=== PATIENT | female | born 1985 | race Hispanic/Latino ===

== ENCOUNTER 2017-06-25 12:10 | Inpatient (IN) | payer MEDICAID ==
[2017-06-25 12:27] VITALS: O2SAT 98
--- NOTE | 2017-06-25 13:01 | ED PDOC ---
HPI: Psych/Substance Abuse Time Seen by Provider: 06/25/17 12:27 Chief Complaint (Nursing): Psychiatric Evaluation Chief Complaint (Provider): Psychiatric Evaluation History Per: Patient History/Exam Limitations: no limitations Onset/Duration Of Symptoms: Days (x 2-3 weeks) Current Symptoms Are (Timing): Still Present Suicide/Self Injury Attempted (Context): Cut Wrists (left) Associated Symptoms: Depression, Suicidal Thoughts Additional Complaint(s): Tiara Bahena is a 31-year-old female with a past medical history of bipolar disorder who ambulated to the Emergency Department for psychiatric evaluation. Patient states she has felt depressed and has been having suicidal ideations for the past 2-3 weeks. She reports being off medications for 5 years. Two days ago, she cut her left wrist but then realized what she was doing and applied pressure to the wound to stop the bleeding. Patient came here voluntarily today requesting admission. She denies any alcohol or drug use. Tetanus is not up to date. PMD: None Past Medical History Reviewed: Historical Data, Nursing Documentation, Vital Signs Vital Signs: Last Vital Signs Temp 97.6 F 06/25/17 12:21 Pulse 84 06/25/17 12:21 Resp 16 06/25/17 12:21 BP 120/72 06/25/17 12:21 Pulse Ox 98 06/25/17 12:21 - Medical History PMH: Bipolar Disorder - Family History Family History: States: Unknown Family Hx - Social History Current smoker - smoking cessation education provided: No Alcohol: None Drugs: Denies - Immunization History Hx Tetanus Toxoid Vaccination: No (Last booster > 10 years ago) - Home Medications Home Medications: Ambulatory Orders Medication Instructions Recorded No Known Home Med 06/25/17 - Allergies Allergies/Adverse Reactions: Allergies Allergy/AdvReac Type Severity Reaction Status Date / Time No Known Allergies Allergy Verified 06/25/17 12:21 Review of Systems ROS Statement: Except As Marked, All Systems Reviewed And Found Negative Psych: Positive for: Depression, Suicidal ideation. Negative for: Other ( hallucinations, homicidal ideation) Physical Exam - Reviewed Nursing Documentation Reviewed: Yes Vital Signs Reviewed: Yes - Physical Exam Appears: Positive for: Non-toxic, No Acute Distress Head Exam: Positive for: ATRAUMATIC, NORMAL INSPECTION, NORMOCEPHALIC Skin: Positive for: Normal Color. Negative for: Rash Eye Exam: Positive for: Normal appearance Neck: Positive for: Normal, Painless ROM Cardiovascular/Chest: Positive for: Regular Rate, Rhythm. Negative for: Murmur Respiratory: Positive for: Normal Breath Sounds. Negative for: Accessory Muscle Use, Respiratory Distress Pulses-Radial (L): 2+ Pulses-Radial (R): 2+ Gastrointestinal/Abdominal: Positive for: Normal Exam, Soft. Negative for: Tenderness Back: Positive for: Normal Inspection. Negative for: Vertebral Tenderness Extremity: Positive for: Normal ROM. Negative for: Pedal Edema, Deformity Neurologic/Psych: Positive for: Alert, Oriented (x3) - Laboratory Results Result Diagrams: 06/25/17 13:31 06/25/17 13:31 Urine POC: Negative - ECG O2 Sat by Pulse Oximetry: 98 (RA) Pulse Ox Interpretation: Normal - Other Rad CXR X-Ray: Interpreted by Me, Viewed By Me X-Ray Interpretation: no acute disease Medical Decision Making Medical Decision Making: Initial Impression: 31-year-old female with suicidal ideation Time: 12:58 Initial Plan: --ED Urine --Urinalysis --Urine drug screen --Alcohol serum --CMP --CBC with Differential --Chest X-Ray --Tetanus vaccine 0.5 ml IM --Pending crisis evaluation As per crisis counselor and psychiatrist excellence consultant, Dr. Roman, patient does meet criteria for admission. Patient signed herself in and agrees with admission. Patient is medically stable for psychiatric admission. Scribe Attestation: Documented by Colette Mccloud, acting as a scribe for Dee Dee Walter PA-C Provider Scribe Attestation: All medical record entries made by the Scribe were at my direction and personally dictated by me. I have reviewed the chart and agree that the record accurately reflects my personal performance of the history, physical exam, medical decision making, and the department course for this patient. I have also personally directed, reviewed, and agree with the discharge instructions and disposition. Disposition - Clinical Impression Clinical Impression: Bipolar disorder - Patient ED Disposition Is Patient to be Admitted: Yes - Disposition Disposition Time: 14:57 Condition: FAIR Results - Lab Results Lab Results: 06/25/17 06/25/17 13:31 13:31 WBC 9.1 RBC 4.52 Hgb 12.7 Hct 38.3 MCV 84.9 MCH 28.1 MCHC 33.1 RDW 13.7 Plt Count 353 MPV 8.1 Neut % (Auto) 55.6 Lymph % (Auto) 29.5 Sheridan % (Auto) 9.8 Eos % (Auto) 4.1 H Baso % (Auto) 1.0 Neut # 5.1 Lymph # 2.7 Sheridan # 0.9 H Eos # 0.4 Baso # 0.1 Sodium 140 Potassium 4.2 Chloride 104 Carbon Dioxide 25 Anion Gap 15 BUN 13 Creatinine 0.7 Est GFR ( Amer) > 60 Est GFR (Non-Af Amer) > 60 Random Glucose 96 Calcium 9.5 Total Bilirubin 0.5 AST 27 ALT 33 Alkaline Phosphatase 60 Total Protein 7.4 Albumin 4.4 Globulin 2.9 Albumin/Globulin Ratio 1.5 Serum HCG, Qual Negative Alcohol, Quantitative < 10
[2017-06-25 13:42] LABS: BASO # 0.1 K/uL (0.0-0.2); EOS # 0.4 K/uL (0.0-0.7); EOS % 4.1 % (0.0-4.0); HEMOGLOBIN 12.7 g/dL (12.0-16.0); LYMPH # 2.7 K/uL (1.0-4.3); LYMPH % 29.5 % (20.0-40.0); MEAN CELL VOLUME 84.9 fl (81.0-99.0); MEAN CORPUSCULAR HEMOGLOBIN 28.1 pg (27.0-31.0); MEAN CORPUSCULAR HGB CONC 33.1 g/dL (33.0-37.0); MEAN PLATELET VOLUME 8.1 fl (7.2-11.7); MONO # 0.9 K/uL (0.0-0.8); MONO % 9.8 % (0.0-10.0); NEUT # 5.1 K/uL (1.8-7.0); NEUT % 55.6 % (50.0-75.0); NRBC % 0.1 % (0.0-0.0); RBC 4.52 Mil/uL (3.80-5.20); RED CELL DISTRIBUTION WIDTH 13.7 % (11.5-14.5); WHITE BLOOD COUNT 9.1 K/uL (4.8-10.8)
[2017-06-25 14:03] LABS: ALB/GLOB RATIO 1.5 (1.0-2.1); ALBUMIN 4.4 g/dL (3.5-5.0); ALT/SGPT 33 U/L (9-52); AST/SGOT 27 U/L (14-36); BLOOD UREA NITROGEN 13 mg/dl (7-17); CALCIUM 9.5 mg/dL (8.4-10.2); GFR AFRICAN-AMERICAN > 60; GFR NON-AFRICAN AMERICAN > 60
[2017-06-25 15:14] LABS: SQUAMOUS EPITHIAL 2 /hpf (0-5); URINE BILIRUBIN NEGATIVE (NEGATIVE); URINE BLOOD NEGATIVE (NEGATIVE); URINE CLARITY SLIGHTY-CLOUDY (Clear); URINE COLOR YELLOW (YELLOW); URINE GLUCOSE (UA) NEG (Normal); URINE LEUKOCYTE ESTERASE NEG Leu/uL (Negative); URINE NITRATE NEGATIVE (NEGATIVE); URINE PROTEIN 30 mg/dL (NEGATIVE)
[2017-06-25 15:29] LABS: BENZODIAZEPINES, UR NEGATIVE (NEGATIVE); OPIATES, UR NEGATIVE (NEGATIVE); PHENCYCLIDINE, UR NEGATIVE (NEGATIVE)
[2017-06-25 15:53] LABS: BARBITURATES, UR NEGATIVE (NEGATIVE)
--- NOTE | 2017-06-25 16:16 | RAD ---
HISTORY: admit COMPARISON: No prior. FINDINGS: LUNGS: No active pulmonary disease. PLEURA: No significant pleural effusion identified, no pneumothorax apparent. CARDIOVASCULAR: Normal. OSSEOUS STRUCTURES: No significant abnormalities. VISUALIZED UPPER ABDOMEN: Normal. OTHER FINDINGS: None. IMPRESSION: No active disease.
--- NOTE | 2017-06-25 19:07 | PCM.BM ---
Treatment Plan Problems - Problems identified on initial assessmt Hopelessness/Restlessness Date Initiated: 06/25/17 Time Initiated: 18:40 Assessment reference: NA Status: Active Treatment assets and liabiliti Patient Assests: adapts well, cooperative, educated, resourceful, ADL independent, physically healthy, good support system Patient Liabilities: poor support system - Milieu Protocol Maintain good personal hygiene: daily Assist patient to perform ADL's, every shift Encourage regular showers, every shift Remind patient to perform daily oral care Conduct patient checks and document Observation sheet: Q15 minutes Maintain personal safety: every shift Educate patient to report safety concerns to staff, every shift Monitor environment for contraband/sharps Medication safety: Monitor for expected outcome, potential side effects: every shift, Assess barriers to learning: every shift, Assess readiness for medication education: every shift Family Contact Family involvement: Patient does not wish Family/SO involvement - Goals for Treatment Patient goals for treatment: to feel less depressed
[2017-06-25] MEDS ORDERED: Alum-Mag Hydrox-Simethicone Susp (30 mL) PO PRN (20:18)
[2017-06-25] MEDS ORDERED: DiphenhydrAMINE 50 mg/ml Inj IM PRN (20:18)
[2017-06-25] MEDS ORDERED: Magnesium Hydroxide Susp 30 ml UD PO PRN (20:18)
[2017-06-26 08:10] LABS: T4 8.45 ug/dl (5.5-11.0)
--- NOTE | 2017-06-26 10:57 | PCM.PSYCH ---
Initial Psychiatric Evaluation - Initial Psychiatric Evaluation Type of Admission: Voluntary Legal Status: Capacity Chief Complaint (in patient's own words): I do not know how to deal with my emotions Patient's Reaction to Hospitalization: pt presented to ER requesting help History of Present Illness and Precipitating Events: pt with previous diagnosis of bipolar disorder and polysubstance use in full remission for the past five years, pt moved from [place] to [place] five years ago since then has not been compliant with medications or follow up pt reported that she continued to experience rapid mood swings with episodes of depression alternating with episodes of irritability and poor sleep, recently pt has been unhappy about her living situation with a friend, also having financial difficulties, as she is in the process of changing careers, day before evaluation, pt felt increasingly overwhelmed , cut her wrist superficially and informed the friend she lives with , pt was brought to ER for evaluation pt presenting with pressured speech very labile affect , increased irritability poor sleep, reported passive suicidal ideations wishing she would not be there but no suicidal plan on the unit, denied homicidal ideations denied perceptual disturbances, no current substance use, urine toxicology is negative Current Medications: Active Medications Generic Name Dose Route Start Last Admin Trade Name Freq PRN Reason Stop Dose Admin Acetaminophen 650 mg 06/25/17 20:18 Tylenol 325mg Tab PO Q4 PRN pain level 4-7 Al Hydrox/Mg Hydrox/Simethicone 30 ml 06/25/17 20:18 Maalox Plus 30 Ml PO Q4 PRN Dyspepsia Aripiprazole 5 mg 06/26/17 10:08 Abilify PO DAILY ALISE Diphenhydramine HCl 50 mg 06/25/17 20:18 Benadryl IM Q6 PRN Extrapyramidal S/S Unable PO Diphenhydramine HCl 50 mg 06/25/17 20:18 Benadryl PO Q6 PRN Extrapyramidal Symptoms Diphenhydramine HCl 50 mg 06/25/17 20:22 Benadryl PO HS PRN Sleep Haloperidol 5 mg 06/25/17 20:18 Haldol PO Q4 PRN Agitation Haloperidol Lactate 5 mg 06/25/17 20:18 Haldol IM Q4 PRN Agitation, Unable to Take PO Lorazepam 2 mg 06/25/17 20:18 Ativan IM Q4 PRN Anxiety/Agitation,Unable PO Lorazepam 2 mg 06/25/17 20:18 Ativan PO Q4 PRN Anxiety/Agitation Magnesium Hydroxide 30 ml 06/25/17 20:18 Milk Of Magnesia PO HS PRN Constipation Oxcarbazepine 150 mg 06/26/17 10:15 Trileptal PO BID ALISE Past Psychiatric History - Past Psychiatric History Explanation of prior treatment: first hospitalization at age 15 involuntary since then about three hospitalizations in [place] pt has been placed on lithium, seroquel, non compliant for side effects History of ETOH/Drug Use: hx of polysubstance use in full remission for five years Pertinent Medical Hx (Current Medical&Sleep Prob, Allergies): Allergies Allergy/AdvReac Type Severity Reaction Status Date / Time No Known Allergies Allergy Verified 06/25/17 12:21 No Known Home Med 06/25/17 Mental Status Examination - Personal Presentation Personal Presentation: Looks stated age - Affect Affect: Depressed Additional comments: affect very labile, tearful at times - Motor Activity Motor Activity: Psychomotor Agitation - Reliability in Providing Information Reliability in Providing Information: Fair Additional comments: pt at times guarded with information - Speech Additional comments: speech overproductive, pressured at times - Mood Mood: Depressed - Formal Thought Process Formal Thought Process: Circumstantial - Hallucinations/Delusions Additional comments: pt denied perceptual disturbances, non elicited - Obsessions/Compulsions Obsessions: No Compulsions: No - Cognitive Functions Orientation: Person, Place Sensorium: Alert Attention/Concentration: Attentive Judgement: Imparied, as evidence by: Poor judgement Memory: Recent intact, as evidence by: Ability to recall events of the day - Risk Risk: Diminished functioning - Strength & Assets Inventory Strength & Assets Inventory: Education, Employment history - Limitations Additional comments: non compliance with treatment DSM 5 DX - DSM 5 DSM 5 Diagnosis: bipolar I disorder mixed severe - Recommended/Plan of Treatment Treatment Recommendations and Plan of Treatment: start abilify 5mg start trileptal 150mg bid follow up on psychopharmacological effects and side effect profile CBT group and supportive therapy
--- NOTE | 2017-06-26 15:04 | CP.PCM.CON ---
History of Present Illness - History of Present Illness History of Present Illness: 31 year old female patient with no significant PMHx was seen and evaluated at bedside in psych. Patient reports that she has bipolar disorder and she has not been feeling herself lately which led her decision to come to the hospital yesterday. Patient denies of having any other complains at this time. Patient denied of any recent F/N/V/C/SOB/CP/headache/diarrhea/constipation. PMHx: Denies PSHx: Dermatofibroma removal Allergies: N.K.D.A SHx: Agrees to smoking (process of quitting), Occasional EtOH use; Denies of illicit drug usage FHx: Mother: HTN Review of Systems - Constitutional Constitutional: As Per HPI Past Patient History - Past Social History Alcohol: None Drugs: Denies - CARDIAC Hx Cardiac Disorders: No - PULMONARY Hx Respiratory Disorders: No Hx Tuberculosis: No - NEUROLOGICAL Hx Neurological Disorder: No - HEENT Hx HEENT Problems: No - RENAL Hx Chronic Kidney Disease: No - ENDOCRINE/METABOLIC Hx Endocrine Disorders: No - HEMATOLOGICAL/ONCOLOGICAL Hx Blood Disorders: No Hx Cancer: No Hx Human Immunodeficiency Virus (HIV): No - INTEGUMENTARY Other/Comment: Muscle Tissue Broma Sx R chest area - MUSCULOSKELETAL/RHEUMATOLOGICAL Hx Musculoskeletal Disorders: No - GASTROINTESTINAL Hx Gastrointestinal Disorders: No - GENITOURINARY/GYNECOLOGICAL Hx Genitourinary Disorders: No Hx Sexually Transmitted Disorders: No - PSYCHIATRIC Hx Bipolar Disorder: Yes Hx Substance Use: Yes (different drugs last used 5 yrs ago) - SURGICAL HISTORY Hx Surgeries: Yes Other/Comment: R Chest area Muscle Tissue Broma - ANESTHESIA Hx Anesthesia: Yes Hx Anesthesia Reactions: Yes Hx Malignant Hyperthermia: No Has any member of the family had a problem w/ anesthesia?: No Meds Allergies/Adverse Reactions: Allergies Allergy/AdvReac Type Severity Reaction Status Date / Time No Known Allergies Allergy Verified 06/25/17 12:21 - Medications Medications: Current Medications Acetaminophen (Tylenol 325mg Tab) 650 mg PO Q4 PRN PRN Reason: pain level 4-7 Al Hydrox/Mg Hydrox/Simethicone (Maalox Plus 30 Ml) 30 ml PO Q4 PRN PRN Reason: Dyspepsia Aripiprazole (Abilify) 5 mg PO DAILY ALISE Diphenhydramine HCl (Benadryl) 50 mg IM Q6 PRN PRN Reason: Extrapyramidal S/S Unable PO Diphenhydramine HCl (Benadryl) 50 mg PO Q6 PRN PRN Reason: Extrapyramidal Symptoms Diphenhydramine HCl (Benadryl) 50 mg PO HS PRN PRN Reason: Sleep Haloperidol (Haldol) 5 mg PO Q4 PRN PRN Reason: Agitation Haloperidol Lactate (Haldol) 5 mg IM Q4 PRN PRN Reason: Agitation, Unable to Take PO Lorazepam (Ativan) 2 mg IM Q4 PRN PRN Reason: Anxiety/Agitation,Unable PO Lorazepam (Ativan) 2 mg PO Q4 PRN PRN Reason: Anxiety/Agitation Magnesium Hydroxide (Milk Of Magnesia) 30 ml PO HS PRN PRN Reason: Constipation Oxcarbazepine (Trileptal) 150 mg PO BID ALISE Physical Exam - Constitutional Appears: Well, Non-toxic, No Acute Distress - Head Exam Head Exam: ATRAUMATIC - ENT Exam ENT Exam: Normal Exam - Neck Exam Neck exam: Positive for: Full Rom, Normal Inspection - Respiratory Exam Respiratory Exam: Clear to Auscultation Bilateral, NORMAL BREATHING PATTERN. absent: Rales, Rhonchi, Wheezes - Cardiovascular Exam Cardiovascular Exam: REGULAR RHYTHM, +S1, +S2 - GI/Abdominal Exam GI & Abdominal Exam: Normal Bowel Sounds, Soft. absent: Mass, Organomegaly - Rectal Exam Rectal Exam: Deferred - Extremities Exam Extremities exam: Positive for: full ROM, normal capillary refill, normal inspection, pedal pulses present. Negative for: calf tenderness, joint swelling , pedal edema, tenderness - Back Exam Back exam: FULL ROM, NORMAL INSPECTION - Neurological Exam Neurological exam: Alert, Normal Gait, Oriented x3 - Psychiatric Exam Psychiatric exam: Normal Affect, Normal Mood - Skin Skin Exam: Intact, Normal Color, Warm Results - Vital Signs Recent Vital Signs: Last Vital Signs Temp 97.0 F L 06/26/17 09:00 Pulse 70 06/26/17 09:00 Resp 18 06/26/17 09:00 BP 125/77 06/26/17 09:00 Pulse Ox 98 06/25/17 16:46 - Labs Result Diagrams: 06/25/17 13:31 06/25/17 13:31 Labs: Laboratory Results - last 24 hr 06/25/17 06/25/17 06/25/17 13:31 14:42 14:42 Sodium 140 Potassium 4.2 Chloride 104 Carbon Dioxide 25 Anion Gap 15 BUN 13 Creatinine 0.7 Est GFR ( Amer) > 60 Est GFR (Non-Af Amer) > 60 Random Glucose 96 Hemoglobin A1c Calcium 9.5 Total Bilirubin 0.5 AST 27 ALT 33 Alkaline Phosphatase 60 Total Protein 7.4 Albumin 4.4 Globulin 2.9 Albumin/Globulin Ratio 1.5 Triglycerides Cholesterol LDL Cholesterol Direct HDL Cholesterol Thyroxine (T4) TSH 3rd Generation Serum HCG, Qual Negative Urine Color Yellow Urine Clarity Slighty-cloudy Urine pH 6.0 Ur Specific [place] 1.032 H Urine Protein 30 Urine Glucose (UA) Neg Urine Ketones Trace Urine Blood Negative Urine Nitrate Negative Urine Bilirubin Negative Urine Urobilinogen 2.0 H Ur Leukocyte Esterase Neg Urine RBC (Auto) 8 H Urine Microscopic WBC 2 Ur Squamous Epith Cells 2 Urine Opiates Screen Negative Urine Methadone Screen Negative Ur Barbiturates Screen Negative Ur Phencyclidine Scrn Negative Ur Amphetamines Screen Negative U Benzodiazepines Scrn Negative U Oth Cocaine Metabols Negative U Cannabinoids Screen Negative Alcohol, Quantitative < 10 06/26/17 06/26/17 07:24 07:24 Sodium Potassium Chloride Carbon Dioxide Anion Gap BUN Creatinine Est GFR ( Amer) Est GFR (Non-Af Amer) Random Glucose Hemoglobin A1c 5.3 Calcium Total Bilirubin AST ALT Alkaline Phosphatase Total Protein Albumin Globulin Albumin/Globulin Ratio Triglycerides 74 Cholesterol 166 LDL Cholesterol Direct 80 HDL Cholesterol 65 Thyroxine (T4) 8.45 TSH 3rd Generation 1.29 Serum HCG, Qual Urine Color Urine Clarity Urine pH Ur Specific [place]riot Urine Protein Urine Glucose (UA) Urine Ketones Urine Blood Urine Nitrate Urine Bilirubin Urine Urobilinogen Ur Leukocyte Esterase Urine RBC (Auto) Urine Microscopic WBC Ur Squamous Epith Cells Urine Opiates Screen Urine Methadone Screen Ur Barbiturates Screen Ur Phencyclidine Scrn Ur Amphetamines Screen U Benzodiazepines Scrn U Oth Cocaine Metabols U Cannabinoids Screen Alcohol, Quantitative Assessment & Plan - Assessment and Plan (Free Text) Assessment: 31 year old female patient with no significant PMHx was evaluated in psych. Plan: Patient S&E Vitals and Labs reviewed Bipolar disorder - management as per psych - Date & Time Date: 06/26/17 Time: 15:06
--- NOTE | 2017-06-27 14:02 | PCM.PYCHPN ---
Psychiatric Progress Note - Psychiatric Progress Note Patient seen today, length of contact: pt evaluated discussd with team chart reviewed Patient Chief Complaint: I feel better because my father will be helping me Problems Identified/Issues Discussed: pt evaluated with treatment team, speech less pressured and hought process more goal directed, pt stated feeling better as she was able contact her father and he is willing to help he with her living situation reported feeling mood more stable, affect less labile no reported side effects of medications denied any current suicidal or homicidal ideations Medical Problems: first hospitalization at age 15 involuntary since then about three hospitalizations in [place] pt has been placed on lithium, seroquel, non compliant for side effects DSM 5 Symptoms Update: bipolar I disorder MRE mixed Medication Change: Yes (increase trileptal) Medical Record Reviewed: Yes Mental Status Examination - Cognitive Function Orientation: Person, Place Attention: WNL Concentration: WNL Association: WNL Fund of Knowledge: WN Decription of patient's judgement and insights: partial insight , poor judgment - Mood Mood: Depressed Additional comments: labile - Affect Affect: Depressed - Speech Speech: Pressured - Formal Thought Process Formal Thought Process: Circumstantial Psychotic Thoughts and Behaviors: pt denied psychotic symptoms, non elicited - Suicidal Ideation Suicidal Ideation: No - Homicidal Ideation Homicidal Ideation: No Goal/Treatment Plan - Goal/Treatment Plan Progress Toward Problem(s) and Goals/Treatment Plan: continue abilify 5mg increase trileptal to 300mg bid follow up on psychopharmacological effects and side effect profile CBT group and supportive therapy Estimated Date of D/C: 06/30/17
--- NOTE | 2017-06-27 18:29 | CARD ---
APPROVED REPORT EKG Measurement Heart [id number] CO P46 [id number] <Conclusion> NSR Otherwise normal ECG
--- NOTE | 2017-06-28 11:26 | PCM.PYCHPN ---
Psychiatric Progress Note - Psychiatric Progress Note Patient seen today, length of contact: Patient evaluated, case discussed with team, chart reviewed Patient Chief Complaint: "I'm better." Problems Identified/Issues Discussed: Patient reports that her mood has improved. No current AH/VH/paranoia/ delusions. NO SI/HI. She reports that her depression has improved. We discussed the importance of compliance with treatment and medications. Patient will be picked up by her father tomorrow. Medication Change: No Medical Record Reviewed: Yes Consults ordered or reviewed: Medicine consult Mental Status Examination - Cognitive Function Orientation: Person, Place, Situation, Time Memory: Intact Attention: WNL Concentration: WNL Association: WNL Fund of Knowledge: [facility] Decription of patient's judgement and insights: Good I/J - Mood Mood: Neutral - Affect Affect: Broad - Speech Speech: Appropriate - Formal Thought Process Formal Thought Process: No Impairment Psychotic Thoughts and Behaviors: NO AH/VH/paranoia/delusions - Suicidal Ideation Suicidal Ideation: No - Homicidal Ideation Homicidal Ideation: No Goal/Treatment Plan - Goal/Treatment Plan Need for Continued Stay: Discharge may exacerbated symptoms Progress Toward Problem(s) and Goals/Treatment Plan: Bipolar Disorder; patient is improving clinically and will be discharged tomorrow under the care of her father -Continue current medications -Disposition planning -Individual and group therapy Estimated Date of D/C: 06/29/17
[2017-06-28 18:28] VITALS: RESP 18
--- NOTE | 2017-06-29 09:09 | PCM.PYCHDC ---
Mental Status Examination - Mental Status Examination Orientation: Person, Place, Situation, Time Memory: Intact Mood: Neutral Affect: Broad Speech: Appropriate Attention: WNL Concentration: WNL Association: WNL Fund of Knowledge: WNL Formal Thought Process: No Impairment Description of patient's judgement and insight: Good I/J Psychotic Thoughts and Behaviors: NO AH/VH/paranoia/delusions Suicidal Ideation: No Current Homicidal Ideation?: No Discharge Summary - Discharge Note Reason for Hospitalization: As per initial HPI note: pt with previous diagnosis of bipolar disorder and polysubstance use in full remission for the past five years, pt moved from [place] to [place] five years ago since then has not been compliant with medications or follow up pt reported that she continued to experience rapid mood swings with episodes of depression alternating with episodes of irritability and poor sleep, recently pt has been unhappy about her living situation with a friend, also having financial difficulties, as she is in the process of changing careers, day before evaluation, pt felt increasingly overwhelmed , cut her wrist superficially and informed the friend she lives with , pt was brought to ER for evaluation pt presenting with pressured speech very labile affect , increased irritability poor sleep, reported passive suicidal ideations wishing she would not be there but no suicidal plan on the unit, denied homicidal ideations denied perceptual disturbances, no current substance use, urine toxicology is negative Consultations:: List each consultation separately and include: 1. Reason for request. 2. Findings. 3. Follow-up Consultations: Medicine consult Summary of Hospital Course include:: 1. Description of specific treatment plan utilized for patients during their course of treatmen. 2. Summarize the time- course for resolution of acute symptoms and/or regressed behaviors. 3. Describe issues identified and worked on during hospitalization. 4. Describe medication utilized. 5. Describe medical problems identified and treated. 6. Reassessment of suicide risk Summary of Hospital Course: Patient was admitted to the psychiatry unit. Individual and group therapy were provided. Patient was stabilized on Abilify 5 mg PO Daily and Trileptal 300 mg PO BID. She reports improved mood. No current depression/anxiety/ psychosis. She is psychiatrically stable for discharge and will be cared for by her father upon discharge. Drill Press Hand discussed the importance of compliance with treatment and medications. - Final Diagnosis (DSM 5) Condition upon Discharge: FAIR DSM 5: Bipolar Disorder Disposition: HOME/ ROUTINE Follow-up Treatment Plan: Bipolar Disorder; patient is psychiatrically stable for discharge -Continue current medications Prescriptions/Medication Reconciliation: ARIPiprazole [Abilify] 5 mg PO DAILY #30 tab OXcarbazepine [Trileptal] 300 mg PO BID #60 tab - Smoking Cessation Smoking Cessation Medication prescribed: No Reason for not providing: Not indicated - Antipsychotic Medications Pt discharged on 2 or more routine antipsychotic medications: No
[2017-06-29 14:30] VITALS: BP 104/57; PULSE 88; TEMP 98.1
== END 2017-06-29 12:00 | disposition home or self-care (01) | DRG 885 ==
LOC: H.ER 12:10 → H.ERHOLD 14:39 → H.PSYCH 18:45
PROVIDERS: ADMIT Psychiatry & Neurology Psychiatry; ATTEND Psychiatry & Neurology Psychiatry
PROC: 3E0234Z Introduction of Serum, Toxoid and Vaccine into Muscle, Percutaneous Approach (ICD-10-PCS; 2017-06-25)
PROC: GZHZZZZ Group Psychotherapy (ICD-10-PCS; principal; 2017-06-26)
PROC: GZ51ZZZ Individual Psychotherapy, Behavioral (ICD-10-PCS; 2017-06-26)
DX: F31.63 Bipolar disorder, current episode mixed, severe, without psychotic features (principal); R45.851 Suicidal ideations; Z91.14 Patient's other noncompliance with medication regimen; S61.512A Laceration without foreign body of left wrist, initial encounter; Z79.899 Other long term (current) drug therapy; Z82.49 Family history of ischemic heart disease and other diseases of the circulatory system; Z91.19 Patient's noncompliance with other medical treatment and regimen; Z23 Encounter for immunization; X78.9XXA Intentional self-harm by unspecified sharp object, initial encounter; Y93.9 Activity, unspecified; Y92.9 Unspecified place or not applicable